=== PATIENT | female | born 1985 | race Caucasian/White ===

== ENCOUNTER 2022-03-12 08:00 | Outpatient (CLI) | payer BC ==
--- NOTE | 2022-03-12 10:06 | XRAY Report ---
PROCEDURE: Foot 3 View RT INDICATIONS: RIGHT FOOT PAIN TECHNIQUE: 3 views of the foot were acquired. COMPARISON: None FINDINGS: Bones: There is a minimally displaced fracture through the proximal left fifth metatarsal. No other f racture or dislocation. No intra-articular extension. Soft tissues: No tibiotalar joint effusion. Achilles tendon appears normal. IMPRESSION: Fifth metatarsal fracture. Reviewed by: Mel Rivera MD on 03/12/2022 10:05 AM PDT Approved by: Mel Rivera MD on 03/12/2022 10:05 AM PDT Station ID: [id number]
== END 2022-03-12 23:59 | disposition home or self-care (01) ==
LOC: DI.S 08:00
PROVIDERS: ATTEND Emergency Medicine
DX: S92.351A Displaced fracture of fifth metatarsal bone, right foot, initial encounter for closed fracture (principal)